=== PATIENT | female | born 1950 | race Hispanic/Latino ===

== ENCOUNTER 2019-08-06 21:35 | Emergency (ER) | payer MEDICARE, OTHER ==
[2019-08-06] MEDS ORDERED: ONDANSETRON 4 MG/2 ML INJ IV ONE (21:59)
--- NOTE | 2019-08-06 22:04 | Emergency Department Report ---
HPI - General Chief Complaint: Fall Time Seen by Provider: 08/06/19 21:51 - HPI HPI: Room 4 The patient is a 69-year-old female present with a chief complaint of fall. The patient was sent from [facility] after reportedly falling when philippin g to get up from her wheelchair. Patient has swelling of the left hand complains of a mild headache with dizziness and nausea. X-ray from longterm facility reveals angulation of distal left third metacarpal suspicious of a nondisplaced fracture. ED Past Medical Hx - Past Medical History Previous Medical History?: Yes Hx CVA: Yes Hx Psychiatric Treatment: Yes (unspecified psychosis, depressive d/o, anxiety, schizophrenia) Hx Dementia: Yes Additional medical history: insominia, fall, muscle weakness, nicotine dependence - Surgical History Past Surgical History?: No Additional Surgical History: unknown - pt is poor historian - Family History Family history: no significant - Social History Smoking Status: Unknown if ever smoked Substance Use Type: None - Medications Home Medications: Home Medications Medication Instructions Recorded Confirmed Last Taken Type Acetaminophen [Acetaminophen TAB] 650 mg PO Q6H PRN #60 tablet 11/03/18 Unknown Rx Folic Acid [Folvite] 1 mg PO QDAY #30 tablet 11/03/18 Unknown Rx LORazepam [Ativan] 1 mg PO Q8H PRN #60 tablet 11/03/18 Unknown Rx Melatonin [Melatonin 5MG TAB] 10 mg PO QHS #30 tablet 11/03/18 Unknown Rx Memantine 5 mg PO BID #30 tablet 11/03/18 Unknown Rx Mirtazapine [Remeron 15mg TAB] 15 mg PO QHS #30 tablet 11/03/18 Unknown Rx Multivitamin Tab [Multiple Vitamin 1 each PO QDAY #30 tablet 11/03/18 Unknown Rx TAB (Theragran)] Nicotine [Habitrol] 14 mg TD QDAY #30 patch 11/03/18 Unknown Rx OLANzapine ZYDIS [ZyPREXA Zydis] 5 mg PO HS #30 tab.rapdis 11/03/18 Unknown Rx levoFLOXacin [Levaquin TAB] 500 mg PO Q24HR #7 tablet 11/03/18 Unknown Rx megestroL [Megestrol] 20 mg PO QID #120 tablet 11/03/18 Unknown Rx traZODone [Desyrel] 50 mg PO QHS #30 tablet 11/03/18 Unknown Rx traZODone [Desyrel] 50 mg PO QHS PRN #30 tablet 11/03/18 Unknown Rx HYDROcodone/APAP 5-325 [Manlius 1 each PO Q6HR PRN #20 tablet 08/06/19 Unknown Rx 5/325] ED Review of Systems ROS: Stated complaint: FALL Other details as noted in HPI Comment: Unobtainable due to pts medical conditions Physical Exam - Physical Exam Physical Exam: GENERAL: The patient is well-developed well-nourished female lying on stretcher not appearing to be in acute distress. [] HEENT: Normocephalic. Atraumatic. Extraocular motions are intact. Patient has moist mucous membranes. NECK: Supple. Trachea midline CHEST/LUNGS: Clear to auscultation. There is no respiratory distress noted. HEART/CARDIOVASCULAR: Regular. There is no tachycardia. There is no gallop rub or murmur. ABDOMEN: Abdomen is soft, nontender. Patient has normal bowel sounds. There is no abdominal distention. SKIN: There is no rash. There is no edema. There is no diaphoresis. NEURO: The patient is awake, alert, and oriented. The patient is cooperative. The patient has no focal neurologic deficits. The patient has normal speech. Cranial nerves II through XII grossly intact MUSCULOSKELETAL: There is swelling and tenderness to the dorsum of the left hand ED Medical Decision Making - Lab Data Laboratory Tests 08/06/19 23:15 ABG pH 7.377 ABG pCO2 39.0 ABG pO2 68.9 L ABG HCO3 22.4 ABG O2 Saturation 95.1 ABG O2 Content 18.0 ABG Base Excess -2.5 L ABG Hemoglobin 13.8 ABG Carboxyhemoglobin 1.5 ABG Methemoglobin 0.6 Oxyhemoglobin 93.2 L FiO2 21 - Radiology Data Radiology results: report reviewed (CT head, CT cervical spine, left hand x- ray), image reviewed (CT head, CT cervical spine, left hand x-ray,) interpreted by me: Left hand [id number] third metacarpal fracture [facility] [address] [place] [address] Cat Scan Report Signed Patient: OSMANY JACOBS MR#: [id number] : 1950 Acct:[id number] Age/Sex: 69 / F ADM Date: 08/06/19 Loc: ED Attending Dr: Ordering Physician: JENNIE SINCLAIR MD Date of Service: 08/06/19 Procedure(s): CT head/brain wo con Accession Number(s): [id number] cc: JENNIE SINCLAIR MD CT HEAD WITHOUT CONTRAST INDICATION: Headache dizziness, after fall. TECHNIQUE: All CT scans at this location are performed using CT dose reduction for ALARA by means of automated exposure control. COMPARISON: CT 09/27/2018 FINDINGS: HEMORRHAGE: None. EXTRA-AXIAL SPACES: Normal in size and morphology for the patient's age. VENTRICULAR SYSTEM: Normal in size and morphology for the patient's age. BRAIN PARENCHYMA: No acute findings. MIDLINE SHIFT OR HERNIATION: None. ORBITS: Normal as visualized. SOFT TISSUES OF HEAD: Normal. CALVARIUM: Normal. VISUALIZED PARANASAL SINUSES AND MASTOID AIR CELLS: Clear. ADDITIONAL FINDINGS: None. IMPRESSION: 1. No acute intracranial abnormality. Signer Name: Og Lomeli MD Signed: 08/06/2019 10:40 PM Workstation Name: [id number] Transcribed By: SAGAR Dictated By: Og Lomeli MD Electronically Authenticated By: Og Lomeli MD Signed Date/Time: 08/06/192239 DD/ 37 TD/TT: [facility] [address] [place] [address] Cat Scan Report Signed Patient: OSMANY JACOBS MR#: [id number] : 1950 Acct:[id number] Age/Sex: 69 / F ADM Date: 08/06/19 Loc: ED Attending Dr: Ordering Physician: JENNIE SINCLAIR MD Date of Service: 08/06/19 Procedure(s): CT cervical spine wo con Accession Number(s): [id number] cc: JENNIE SINCLAIR MD CT cervical spine wo con INDICATION / CLINICAL INFORMATION: Headache dizziness, after fall. TECHNIQUE: Axial CT imaging of the cervical spine was obtained without contrast. Coronal and sagittal reformatted imaging obtained and reviewed. All CT scans at this location are performed using CT dose reduction for ALARA by means of automated exposure control. COMPARISON: None available. FINDINGS: No cervical spine fracture or traumatic malalignment is identified. There is mild spondylitic change throughout the spine and mild degenerative disc disease at C5-C6. No paravertebral soft tissue abnormality. Visualized lung apices are clear. IMPRESSION: 1. No evidence of cervical spine fracture or traumatic malalignment. 2. Mild diffuse spondylytic change with mild degenerative disc disease at C5-C6. Signer Name: Nanette Thomas MD Signed: 08/06/2019 10:50 PM Workstation Name: [id number] Transcribed By: Dictated By: Nanette Thomas MD Electronically Authenticated By: Nanette Thomas MD Signed Date/Time: 08/06/192249 DD/ 44 TD/TT: [facility] [address] [place] [address] XRay Report Signed Patient: OSMANY JACOBS MR#: [id number] : 1950 Acct:[id number] Age/Sex: 69 / F ADM Date: 08/06/19 Loc: ED Attending Dr: Ordering Physician: JENNIE SINCLAIR MD Date of Service: 08/06/19 Procedure(s): XR hand 3+V LT Accession Number(s): [id number] cc: JENNIE SINCLAIR MD Fluoro Time In Minutes: LEFT HAND, 3 VIEWS INDICATION / CLINICAL INFORMATION: Tenderness and swelling after fall. COMPARISON: None available. FINDINGS: There is nondisplaced intra-articular fracture of the distal aspect of the third metacarpal/middle finger).. Normal alignment of the MCP joint. No additional fractures identified. Minimal degenerative changes present throughout the interphalangeal joints. More advanced degenerative changes present in the thumb carpometacarpal joint. IMPRESSION: Nondisplaced intra-articular fracture of the distal third metacarpal. Signer Name: Nanette Thomas MD Signed: 08/06/2019 10:43 PM Workstation Name: [id number] Transcribed By: Dictated By: Nanette Thomas MD Electronically Authenticated By: Nanette Thomas MD Signed Date/Time: 08/06/192242 DD/ 39 TD/TT: - Differential Diagnosis Close head injury, ICH, cervical fracture, hand fracture Critical care attestation.: If time is entered above; I have spent that time in minutes in the direct care of this critically ill patient, excluding procedure time. ED Disposition Clinical Impression: Fracture of metacarpal of left hand, closed, Closed head injury Disposition: TO HOME OR SELFCARE Is pt being admited?: No Does the pt Need Aspirin: No Condition: Stable Instructions: Hand Fracture (ED) Additional Instructions: Return to the emergency department should you develop worsening symptoms, inability to tolerate food or liquids, high fever or any other concerns Prescriptions: HYDROcodone/APAP 5-325 [Manlius 5/325] 1 each PO Q6HR PRN #20 tablet PRN Reason: Pain Referrals: [facility] MD [place] [Primary Care Provider] - 3-5 Days SHANIKA RIVERA MD [Staff Physician] - 3-5 Days (Dr. Rivera is an orthopedic surgeon. Please follow-up with him for further evaluation and manage ment of your hand fracture) Time of Disposition: 23:41
--- NOTE | 2019-08-06 22:44 | Cat Scan Report ---
CT HEAD WITHOUT CONTRAST INDICATION: Headache dizziness, after fall. TECHNIQUE: All CT scans at this location are performed using CT dose reduction for ALARA by means of automated e xposure control. COMPARISON: CT 09/27/2018 FINDINGS: HEMORRHAGE: None. EXTRA-AXIAL SPACES: Normal in size and morphology for the patient's age. VENTRICULAR SYSTEM: Normal in size and morphology for the patient's age. BRAIN PARENCHYMA: No acute findings. MIDLINE SHIFT OR HERNIATION: None. ORBITS: Normal as visualized. SOFT TISSUES OF HEAD: Normal. CALVARIUM: Normal. VISUALIZED PARANASAL SINUSES AND MASTOID AIR CELLS: Clear. ADDITIONAL FINDINGS: None. IMPRESSION: 1. No acute intracranial abnormality. Signer Name: Og Lomeli MD Signed: 08/06/2019 10:40 PM Workstation Name: [id number]
--- NOTE | 2019-08-06 22:48 | XRay Report ---
LEFT HAND, 3 VIEWS INDICATION / CLINICAL INFORMATION: Tenderness and swelling after fall. COMPARISON: None available. FINDINGS: There is nondisplaced intra-articular fracture of the distal aspect of the third metacarpal/middle fi nger).. Normal alignment of the MCP joint. No additional fractures identified. Minimal degenerative changes present throughout the interphalangeal joints. More advanced degenerativ e changes present in the thumb carpometacarpal joint. IMPRESSION: Nondisplaced intra-articular fracture of the distal third metacarpal. Signer Name: Nanette Thomas MD Signed: 08/06/2019 10:43 PM Workstation Name: [id number]
--- NOTE | 2019-08-06 22:54 | Cat Scan Report ---
CT cervical spine wo con INDICATION / CLINICAL INFORMATION: Headache dizziness, after fall. TECHNIQUE: Axial CT imaging of the cervical spine was obtained without contrast. Coronal and sagittal reformatte d imaging obtained and reviewed. All CT scans at this location are performed using CT dose reduction for ALARA by means of automated exposure control. COMPARISON: None available. FINDINGS: No cervical spine fracture or traumatic malalignment is identified. There is mild spondylitic change throughout the spine and mild degenerative disc disease at C5-C6. No paravertebral soft tissue abnormality. Visualized lung apices are clear. IMPRESSION: 1. No evidence of cervical spine fracture or traumatic malalignment. 2. Mild diffuse spondylytic change with mild degenerative disc disease at C5-C6. Signer Name: Nanette Thomas MD Signed: 08/06/2019 10:50 PM Workstation Name: [id number]
[2019-08-06 23:25] LABS: ABG Base Excess -2.5 mmol/L (-2.0-3.0); ABG HCO3 22.4 mmol/L (20.0-26.0); ABG Methemoglobin 0.6 % (0.0-1.5); ABG Oxygen Saturation 95.1 % (95.0-99.0); ABG PH 7.377 pH Units (7.350-7.450); ABG PO2 68.9 mm Hg (80.0-90.0)
[2019-08-07 01:02] VITALS: BP 134/84
== END 2019-08-07 01:21 | disposition home or self-care (01) ==
LOC: ED 21:35
DX: S62.393A Other fracture of third metacarpal bone, left hand, initial encounter for closed fracture (principal); S09.90XA Unspecified injury of head, initial encounter; F20.9 Schizophrenia, unspecified; W18.30XA Fall on same level, unspecified, initial encounter; Y93.89 Activity, other specified; Y92.89 Other specified places as the place of occurrence of the external cause; Y99.8 Other external cause status
CPT/HCPCS: 29125; 70450; 72125; 73130; 82803; 96374; 99285; J2405

== ENCOUNTER 2021-08-16 10:44 | Emergency (ER) | payer MEDICARE ==
--- NOTE | 2021-08-16 12:09 | Emergency Department Report ---
ED General Adult HPI - General Chief complaint: Fall Stated complaint: FALL/INJURY TO HEAD Time Seen by Provider: 08/16/21 11:55 Source: patient, EMS ( EMS documentation not available at time of chart dictation ), RN notes reviewed, old records reviewed Mode of arrival: Stretcher Limitations: Other (Patient is demented and a poor historian) - History of Present Illness Initial comments: The patient was evaluated in the emergency department for symptoms described in the history of present illness. He/she was evaluated in the context of the global COVID-19 pandemic, which necessitated consideration that the patient might be at risk for infection with the virus that causes COVID-19. Institutional protocols and algorithms that pertain to the evaluation of patients at risk for COVID-19 are in a state of rapid change based on information released by regulatory bodies including the CDC and federal and state organizations. These policies and algorithms were followed during the patient's care in the emergency department. Please note that these policies, procedures and recommendations changed on a rapid basis. EMS documentation not available at time of chart dictation Primary CARE doctor: Dr. Agustin Villalobos This is a pleasant and cooperative 71-year-old female with a history of dementia, schizophrenia, insomnia, depression, arthropathy, who was sent to the emergency room by her longterm for evaluation of fall. The fall is not wit nessed. The patient tells me that she fell. She cannot recall the specific instances surrounding the context of her fall. She complains of left-sided forehead pain and periorbital pain, and right-sided knee pain. She denies additional injuries and complaints. The patient is not accompanied by friends or family at this time for collateral information or additional history. Location: head, face, lower extremity (Right knee, right lower extremity) Quality: aching Consistency: intermittent Improves with: rest Worsens with: movement - Related Data Previous Rx's Medication Instructions Recorded Last Taken Type Acetaminophen [Acetaminophen TAB] 650 mg PO Q6H PRN #60 tablet 11/03/18 Unknown Rx Folic Acid [Folvite] 1 mg PO QDAY #30 tablet 11/03/18 Unknown Rx LORazepam [Ativan] 1 mg PO Q8H PRN #60 tablet 11/03/18 Unknown Rx Melatonin [Melatonin 5MG TAB] 10 mg PO QHS #30 tablet 11/03/18 Unknown Rx Memantine 5 mg PO BID #30 tablet 11/03/18 Unknown Rx Mirtazapine [Remeron 15mg TAB] 15 mg PO QHS #30 tablet 11/03/18 Unknown Rx Multivitamin Tab [Multiple Vitamin 1 each PO QDAY #30 tablet 11/03/18 Unknown Rx TAB (Theragran)] Nicotine [Habitrol] 14 mg TD QDAY #30 patch 11/03/18 Unknown Rx OLANzapine ZYDIS [ZyPREXA Zydis] 5 mg PO HS #30 tab.rapdis 11/03/18 Unknown Rx levoFLOXacin [Levaquin TAB] 500 mg PO Q24HR #7 tablet 11/03/18 Unknown Rx megestroL [Megestrol] 20 mg PO QID #120 tablet 11/03/18 Unknown Rx traZODone [Desyrel] 50 mg PO QHS #30 tablet 11/03/18 Unknown Rx traZODone [Desyrel] 50 mg PO QHS PRN #30 tablet 11/03/18 Unknown Rx HYDROcodone/APAP 5-325 [[place] 1 each PO Q6HR PRN #20 tablet 08/06/19 Unknown Rx 5/325] Allergies Allergy/AdvReac Type Severity Reaction Status Date / Time No Known Allergies Allergy Verified 08/16/21 11:38 ED Review of Systems ROS: Stated complaint: FALL/INJURY TO HEAD Other details as noted in HPI Constitutional: denies: fever Eyes: other (Supraorbital pain left) ENT: denies: epistaxis Respiratory: denies: cough Cardiovascular: denies: chest pain, syncope Gastrointestinal: denies: abdominal pain Genitourinary: denies: dysuria Musculoskeletal: joint swelling, arthralgia, myalgia Neurological: headache. denies: weakness ED Past Medical Hx - Past Medical History Hx CVA: Yes Hx Renal Disease: No Hx Arthritis: Yes Hx Seizures: No Hx Psychiatric Treatment: Yes (unspecified psychosis, depressive d/o, anxiety, schizophrenia) Hx Dementia: Yes Additional medical history: insominia, fall, muscle weakness, nicotine de pendence - Surgical History Hx Cholecystectomy: No Hx Appendectomy: No Additional Surgical History: unknown - pt is poor historian - Social History Smoking Status: Unknown if ever smoked Substance Use Type: None - Medications Home Medications: Home Medications Medication Instructions Recorded Confirmed Last Taken Type Acetaminophen [Acetaminophen TAB] 650 mg PO Q6H PRN #60 tablet 11/03/18 Unknown Rx Folic Acid [Folvite] 1 mg PO QDAY #30 tablet 11/03/18 Unknown Rx LORazepam [Ativan] 1 mg PO Q8H PRN #60 tablet 11/03/18 Unknown Rx Melatonin [Melatonin 5MG TAB] 10 mg PO QHS #30 tablet 11/03/18 Unknown Rx Memantine 5 mg PO BID #30 tablet 11/03/18 Unknown Rx Mirtazapine [Remeron 15mg TAB] 15 mg PO QHS #30 tablet 11/03/18 Unknown Rx Multivitamin Tab [Multiple Vitamin 1 each PO QDAY #30 tablet 11/03/18 Unknown Rx TAB (Theragran)] Nicotine [Habitrol] 14 mg TD QDAY #30 patch 11/03/18 Unknown Rx OLANzapine ZYDIS [ZyPREXA Zydis] 5 mg PO HS #30 tab.rapdis 11/03/18 Unknown Rx levoFLOXacin [Levaquin TAB] 500 mg PO Q24HR #7 tablet 11/03/18 Unknown Rx megestroL [Megestrol] 20 mg PO QID #120 tablet 11/03/18 Unknown Rx traZODone [Desyrel] 50 mg PO QHS #30 tablet 11/03/18 Unknown Rx traZODone [Desyrel] 50 mg PO QHS PRN #30 tablet 11/03/18 Unknown Rx HYDROcodone/APAP 5-325 [[place] 1 each PO Q6HR PRN #20 tablet 08/06/19 Unknown Rx 5/325] ED Physical Exam - General Limitations: Other (Dementia and poor historian) General appearance: in no apparent distress - Head Head exam: Present: normocephalic, other (There is left supraorbital ecchymosis, swelling, and hematoma) - Eye Eye exam: Present: normal appearance, EOMI, periorbital swelling, periorbital tenderness, other (Left supraorbital swelling. Left supraorbital tenderness) - ENT ENT exam: Present: normal exam, normal orophraynx, mucous membranes moist, normal external ear exam - Neck Neck exam: Present: normal inspection, full ROM. Absent: tenderness, meningismus - Respiratory Respiratory exam: Present: normal lung sounds bilaterally. Absent: respiratory distress, wheezes, rales, rhonchi, stridor, decreased breath sounds - Cardiovascular Cardiovascular Exam: Present: regular rate, normal rhythm, normal heart sounds. Absent: bradycardia, tachycardia, irregular rhythm, systolic murmur, diastolic murmur, rubs, gallop - GI/Abdominal GI/Abdominal exam: Present: soft. Absent: distended, tenderness, guarding, rebound, rigid, pulsatile mass - Extremities Exam Extremities exam: Present: full ROM, pedal edema (1+ edema in the lower extremities.), other (2+ pulses noted in the bilateral upper and lower extremities. There is no palpable cord. negative Homans sign. Muscular compartments are soft. The pelvis is stable.). Absent: normal inspection (There is a right anterior knee ecchymosis), calf tenderness - Back Exam Back exam: Present: normal inspection, full ROM. Absent: tenderness, CVA tenderness (R), CVA tenderness (L), paraspinal tenderness, vertebral tenderness - Neurological Exam Neurological exam: Present: alert (Patient is awake and alert to name and location), other (There is no facial droop. The tongue is midline. EOMI. Sensation is intact to light touch in 4 extremities. 5/5 strength upper and lower extremities) - Psychiatric Psychiatric exam: Present: flat affect - Skin Skin exam: Present: warm, abrasion, ecchymosis ED Course Vital Signs 08/16/21 11:35 Temperature 98.4 F Pulse Rate 68 Respiratory 18 Rate Blood Pressure 170/90 [Left] O2 Sat by Pulse 99 Oximetry - Reevaluation(s) Reevaluation #1: 08/16/21 13:58 Differential diagnosis, include not limited to: Mechanical fall, closed head injury, intracranial injury, facial bone injury, cervical spine injury, pneumo mala, UTI, electrolyte derangement Assessment and plan: 71-year-old female, who is elderly and demented, with an unwitnessed fall. She is currently afebrile, with reassuring vital signs and in no acute distress. CT scan of the brain, facial bones and cervical spine are negative for significant findings that would require observation or transfer. Currently awaiting urinalysis, x-ray, and laboratory studies. Patient resting comfortably in stretcher at this time, and she is not in any acute distress. 08/16/21 14:12 Patient walking around. She is difficult to redirect. She is demented and di sorganized. This is likely her baseline dementia. As needed haloperidol and Ativan ordered. Still awaiting laboratory studies. 08/16/21 16:02 CT scan 08/16/21 16:08 the patient is reassessed. Her laboratory studies are essentially nonactionable. CT scan brain, facial bones and cervical spine negative for acute traumatic findings that would require emergent intervention. X-rays essentially negative for acute traumatic or emergent findings. UA not consistent with urinary tract infection. Patient pleasant and cooperative, eating a meal at this time, in no acute distress, and interacting smiling and joking with ER staff. This is most likely mechanical fall. The patient is suitable this time to be discharged back to her longterm. We will recommend fall precautions and close observation at her longterm. ED Medical Decision Making - Lab Data Result diagrams: 08/16/21 13:29 08/16/21 13:29 Vital Signs 08/16/21 11:35 Temperature 98.4 F Pulse Rate 68 Respiratory 18 Rate Blood Pressure 170/90 [Left] O2 Sat by Pulse 99 Oximetry - EKG Data -: EKG Interpreted by Wi EKG shows normal: sinus rhythm Rate: normal - EKG Data 08/16/21 13:59 The EKG is interpreted at 12: 18 This is a sinus rhythm, bradycardia, with a rate of 56 bpm. There is a normal axis, normal P wave axis, right bundle branch block, and a first-degree AV block, with a NC interval 2 1 5 ms. There is motion artifact. This is an abnormal EKG. This is not a STEMI. - Radiology Data Radiology results: pending, report reviewed, image reviewed CT HEAD WITHOUT CONTRAST INDICATION / CLINICAL INFORMATION: fall clsoed head injury HEMATOMA TO LEFT FOREHEAD LOC. TECHNIQUE: All CT scans at this location are performed using CT dose reduction for ALARA by means of automated exposure control. COMPARISON: 08/06/2019 FINDINGS: There is left frontal scalp hematoma with periorbital hematoma. No acute intracranial hemorrhage. No midline shift or mass effect. No extra-axial fluid collection is seen. There are scattered areas of low-attenuation in the periventricular and central white matter. Mild atrophy with compensatory increase in ventricular size appears similar to prior exam. Visualized orbits appear normal ADDITIONAL FINDINGS: None. IMPRESSION: 1. Nonspecific white matter change and microangiopathy in the periventricular and central white matter. No acute hemorrhage. 2. Left frontal and periorbital soft tissue hematoma. No acute intracranial hemorrhage. Signer Name: Kunal Cormier MD Signed: 08/16/2021 11:38 AM Workstation Name: [id number] CT facial bones wo con INDICATION / CLINICAL INFORMATION: fall closed head injjry, left periorbital ecchmosi. TECHNIQUE: Axial, coronal and sagittal images All CT scans at this location are performed using CT dose reduction for ALARA by means of automated exposure control. COMPARISON: None available. FINDINGS: Left periorbital soft tissue scalp hematoma. Underlying orbital globes appear intact and normal. Intraocular muscles appear normal. Orbital andres are intact. Zygomatic arches appear intact. Frontal sinuses and ethmoid sinuses and maxillary sinuses are clear. Pterygoid processes appear normal. Nasal bone appears intact. Mandible appears intact. IMPRESSION: 1. Left periorbital and frontal soft tissue scalp hematoma. Oral andres appear intact. No acute fracture is definitely seen. Signer Name: Kunal Cormier MD Signed: 08/16/2021 11:40 AM Workstation Name: [id number] CT cervical spine wo con INDICATION / CLINICAL INFORMATION: fall clsoed head injury. TECHNIQUE: Axial, coronal and sagittal images All CT scans at this location are performed using CT dose reduction for ALARA by means of automated exposure control. COMPARISON: None available. FINDINGS: The cervical spine alignment appears normal. No prevertebral soft tissue swelling. Occipital condyles are intact and normal. Odontoid appears intact. Alignment of C1 and C2 appear normal. Facets are well aligned. Mild increased density seen in the left upper lung with opacity noted. Minimal opacity in the right upper lung. Atherosclerotic calcifications in aorta IMPRESSION: 1. Degenerative change throughout cervical spine without acute fracture. 2. Mild interstitial prominence and densities in the lung apices. Signer Name: Kunal Cormier MD Signed: 08/16/2021 11:46 AM Workstation Name: [id number] CHEST 1 VIEW 08/16/2021 12:39 PM INDICATION / CLINICAL INFORMATION: fall w right knee pain. COMPARISON: None available. FINDINGS: SUPPORT DEVICES: Stable, satisfactory device positioning. HEART / MEDIASTINUM: No significant abnormality. LUNGS / PLEURA: No significant pulmonary or pleural abnormality. No pneumothorax. ADDITIONAL FINDINGS: No significant additional findings. IMPRESSION: 1. No acute findings. Right knee 3 views INDICATION: Fall FINDINGS: Alignment appears normal. No acute fracture or dislocation is seen. No large joint effusion Pelvis one view INDICATION: Fall FINDINGS: Advanced degenerative change in left hip. Prominent osteophyte femoral head neck junction with significant joint space narrowing. Degenerative change in lower lumbar spine. Signer Name: Kunal Cormier MD Signed: 08/16/2021 1:06 PM Workstation Name: [id number] Critical care attestation.: If time is entered above; I have spent that time in minutes in the direct care of this critically ill patient, excluding procedure time. ED Disposition Clinical Impression: Fall, Closed head injury, Traumatic hematoma of forehead, Right knee pain Disposition: 03 [facility] Is pt being admited?: No Does the pt Need Aspirin: No Condition: Good Additional Instructions: Recommend that fall precautions and close observation are initiated for this patient in her longterm. Pain typically gets worse before gets better after mechanical fall. May alternate ice packs and heat packs as needed for physical pain, and [id number] pain medications as needed for physical pain. Please follow-up with your primary care doctor within the next week. Please return to the emergency room right away with new pain, worsened pain, migration of pain, projectile vomiting, change in mental status, confusion, inability tolerate liquid feeds, new, worsened or different symptoms not present on the initial emergency room evaluation Patient was not found to have an emergent traumatic injury or condition at this time which would preclude discharge back to her longterm facility. Referrals: AGUSTIN VILLALOBOS MD [Staff Physician] - 3-5 Days
--- NOTE | 2021-08-16 12:43 | Cat Scan Report ---
CT HEAD WITHOUT CONTRAST INDICATION / CLINICAL INFORMATION: fall clsoed head injury HEMATOMA TO LEFT FOREHEAD LOC. TECHNIQUE: All CT scans at this location are performed using CT dose reduction for ALARA by means of automated e xposure control. COMPARISON: 08/06/2019 FINDINGS: There is left frontal scalp hematoma with periorbital hematoma. No acute intracranial hemorrhage. No midline shift or mass effect. No extra-axial fluid collection is seen. There are scattered areas of l ow-attenuation in the periventricular and central white matter. Mild atrophy with compensatory increa se in ventricular size appears similar to prior exam. Visualized orbits appear normal ADDITIONAL FINDINGS: None. IMPRESSION: 1. Nonspecific white matter change and microangiopathy in the periventricular and central white matte r. No acute hemorrhage. 2. Left frontal and periorbital soft tissue hematoma. No acute intracranial hemorrhage. Signer Name: Kunal Cormier MD Signed: 08/16/2021 12:38 PM Workstation Name: [id number]
--- NOTE | 2021-08-16 12:45 | Cat Scan Report ---
CT facial bones wo con INDICATION / CLINICAL INFORMATION: fall closed head injjry, left periorbital ecchmosi. TECHNIQUE: Axial, coronal and sagittal images All CT scans at this location are performed using CT dose reductio n for ALARA by means of automated exposure control. COMPARISON: None available. FINDINGS: Left periorbital soft tissue scalp hematoma. Underlying orbital globes appear intact and normal. Intr aocular muscles appear normal. Orbital andres are intact. Zygomatic arches appear intact. Frontal sinu ses and ethmoid sinuses and maxillary sinuses are clear. Pterygoid processes appear normal. Nasal bon e appears intact. Mandible appears intact. IMPRESSION: 1. Left periorbital and frontal soft tissue scalp hematoma. Oral andres appear intact. No acute fractu re is definitely seen. Signer Name: Kunal Cormier MD Signed: 08/16/2021 12:40 PM Workstation Name: [id number]
--- NOTE | 2021-08-16 12:50 | Cat Scan Report ---
CT cervical spine wo con INDICATION / CLINICAL INFORMATION: fall clsoed head injury. TECHNIQUE: Axial, coronal and sagittal images All CT scans at this location are performed using CT dose reductio n for ALARA by means of automated exposure control. COMPARISON: None available. FINDINGS: The cervical spine alignment appears normal. No prevertebral soft tissue swelling. Occipital condyles are intact and normal. Odontoid appears intact. Alignment of C1 and C2 appear normal. Facets are wel l aligned. Mild increased density seen in the left upper lung with opacity noted. Minimal opacity in the right upper lung. Atherosclerotic calcifications in aorta IMPRESSION: 1. Degenerative change throughout cervical spine without acute fracture. 2. Mild interstitial prominence and densities in the lung apices. Signer Name: Kunal Cormier MD Signed: 08/16/2021 12:46 PM Workstation Name: [id number]
[2021-08-16] MEDS ORDERED: LORazepam 2 MG/ML VIAL IM PRN (14:11)
[2021-08-16] MEDS ORDERED: HALOPERIDOL LACTATE 5 MG/1 ML INJ IM PRN (14:11)
--- NOTE | 2021-08-16 14:11 | XRay Report ---
CHEST 1 VIEW 08/16/2021 12:39 PM INDICATION / CLINICAL INFORMATION: fall w right knee pain. COMPARISON: None available. FINDINGS: SUPPORT DEVICES: Stable, satisfactory device positioning. HEART / MEDIASTINUM: No significant abnormality. LUNGS / PLEURA: No significant pulmonary or pleural abnormality. No pneumothorax. ADDITIONAL FINDINGS: No significant additional findings. IMPRESSION: 1. No acute findings. Right knee 3 views INDICATION: Fall FINDINGS: Alignment appears normal. No acute fracture or dislocation is seen. No large joint effusion Pelvis one view INDICATION: Fall FINDINGS: Advanced degenerative change in left hip. Prominent osteophyte femoral head neck junction w ith significant joint space narrowing. Degenerative change in lower lumbar spine. Signer Name: Kunal Cormier MD Signed: 08/16/2021 2:06 PM Workstation Name: [id number]
[2021-08-16 14:43] LABS: Hemoglobin 14.8 gm/dl (10.1-14.3); Mean Corpuscular HGB Conc 33 % (30-34); Mean Corpuscular Volume 89 fl (79-97); Platelet Count 140 K/mm3 (140-440); Red Blood Count 5.08 M/mm3 (3.65-5.03); Red Cell Distribution Width 16.2 % (13.2-15.2)
[2021-08-16 14:51] LABS: Bilirubin,Urine NEG (Negative); Blood,Urine NEG (Negative); Color,Urine Yellow (Yellow); Protein,Urine <15 mg/dL mg/dL (Negative); Urobilinogen,Urine < 2.0 mg/dL (<2.0)
[2021-08-16 14:55] LABS: Amorphous Crystals,Urine 1+; Mucus,Urine FEW /HPF
[2021-08-16 14:59] LABS: Ictotest,Urine Negative (Negative)
[2021-08-16 15:35] LABS: Alanine Aminotransferase 16 units/L (7-56); Albumin 4.1 g/dL (3.9-5); Blood Urea Nitrogen 18 mg/dL (7-17); Calcium 10.6 mg/dL (8.4-10.2); Hemolysis Index 53
[2021-08-16 15:55] LABS: BUN/Creatinine Ratio 30
[2021-08-16 20:32] VITALS: BP 112/84
--- NOTE | 2021-08-17 19:47 | Electrocardiograph Report ---
[facility] Test Date: 2021-08-16 Test Time: 12:18:15 Pat Name: OSMANY JACOBS Department: Room: Gender: F Machine Folder: ILIANA : 1950 Requested By: MILES MCGUIRE Order Number: [id number] Reading MD: Alpesh Hutchins Measurements Intervals [place] Rate: 56 P: 62 FL: 215 QRS: 0 QRSD: 102 T: 50 QT: 465 QTc: 449 Interpretive Statements Sinus bradycardia Incomplete right bundle branch block Low voltage QRS No previous ECG available for comparison Electronically Signed On 08-17-2021 19:46:32 EDT by Alpesh Hutchins
== END 2021-08-16 17:00 ==
LOC: ED 10:44
DX: S09.90XA Unspecified injury of head, initial encounter (principal); S00.83XA Contusion of other part of head, initial encounter; M25.561 Pain in right knee; W19.XXXA Unspecified fall, initial encounter; Y93.89 Activity, other specified; Y92.89 Other specified places as the place of occurrence of the external cause; Y99.8 Other external cause status
CPT/HCPCS: 36415; 70450; 70486; 71045; 72125; 72170; 80053; 80320; 81001; 82550; 83735; 85027; 93005; 99285; G0480

== ENCOUNTER 2021-11-02 17:43 | Emergency (ER) | payer MEDICARE ==
--- NOTE | 2021-11-02 23:54 | XRay Report ---
LEFT HUMERUS 2 VIEW(S) INDICATION / CLINICAL INFORMATION: fall COMPARISON: None available. FINDINGS: BONES / JOINT(S): Acute mildly displaced fracture involving the greater tuberosity of the humeral hea d. No other acute fracture or dislocation. SOFT TISSUES: No significant abnormality. ADDITIONAL FINDINGS: None. IMPRESSION: 1. Acute mildly displaced fracture involving the greater tuberosity of the humeral head. Signer Name: Jese Aguirre MD Signed: 11/02/2021 11:49 PM Workstation Name: [email or web address]
--- NOTE | 2021-11-02 23:55 | XRay Report ---
LEFT FOREARM 2 VIEW(S) INDICATION / CLINICAL INFORMATION: fall COMPARISON: None available. FINDINGS: BONES / JOINT(S): No acute fracture or subluxation. No significant arthritis. SOFT TISSUES: Focal soft tissue swelling/edema of the mid forearm. ADDITIONAL FINDINGS: None. IMPRESSION: 1. Focal soft tissue swelling without fracture or other acute osseous process. Signer Name: Jese Aguirre MD Signed: 11/02/2021 11:50 PM Workstation Name: [email or web address]
--- NOTE | 2021-11-02 23:56 | XRay Report ---
CHEST 1 VIEW 11/02/2021 10:40 PM INDICATION / CLINICAL INFORMATION: fall. COMPARISON: 08/16/2021 FINDINGS: SUPPORT DEVICES: Stable, satisfactory device positioning. HEART / MEDIASTINUM: No significant abnormality. LUNGS / PLEURA: Features of emphysema and mild central peribronchial thickening. Right apical opacity is favored to represent vascular confluence. The lungs are otherwise clear without evidence for pneu monia, pulmonary edema or pleural effusion. No pneumothorax. ADDITIONAL FINDINGS: None IMPRESSION: 1. Mild chronic findings, as detailed above, without acute radiographic process. Signer Name: Jese Aguirre MD Signed: 11/02/2021 11:51 PM Workstation Name: [email or web address]
--- NOTE | 2021-11-02 23:57 | XRay Report ---
PELVIS 2 VIEW(S) INDICATION / CLINICAL INFORMATION: fall COMPARISON: None available. FINDINGS: BONES / JOINT(S): No acute fracture or subluxation. Moderate left and mild right hip degenerative ost eoarthritis. SOFT TISSUES: No significant abnormality. ADDITIONAL FINDINGS: Prominent rectal stool concerning for constipation. IMPRESSION: 1. No acute findings. Signer Name: Jese Aguirre MD Signed: 11/02/2021 11:52 PM Workstation Name: [email or web address]
--- NOTE | 2021-11-03 00:25 | Emergency Department Report ---
ED Fall HPI - General Chief Complaint: Fall Stated Complaint: FALL Time Seen by Provider: 11/02/21 22:26 Source: patient, EMS Mode of arrival: Stretcher - History of Present Illness Initial Comments: Patient is a 71-year-old female brought in by EMS after having a fall at home with complaint of pain in her left arm and forearm. She denies any other injuries. - Related Data Previous Rx's Medication Instructions Recorded Last Taken Type Acetaminophen [Acetaminophen TAB] 650 mg PO Q6H PRN #60 tablet 11/03/18 Unknown Rx Folic Acid [Folvite] 1 mg PO QDAY #30 tablet 11/03/18 Unknown Rx LORazepam [Ativan] 1 mg PO Q8H PRN #60 tablet 11/03/18 Unknown Rx Melatonin [Melatonin 5MG TAB] 10 mg PO QHS #30 tablet 11/03/18 Unknown Rx Memantine 5 mg PO BID #30 tablet 11/03/18 Unknown Rx Mirtazapine [Remeron 15mg TAB] 15 mg PO QHS #30 tablet 11/03/18 Unknown Rx Multivitamin Tab [Multiple Vitamin 1 each PO QDAY #30 tablet 11/03/18 Unknown Rx TAB (Theragran)] Nicotine [Habitrol] 14 mg TD QDAY #30 patch 11/03/18 Unknown Rx OLANzapine ZYDIS [ZyPREXA Zydis] 5 mg PO HS #30 tab.rapdis 11/03/18 Unknown Rx levoFLOXacin [Levaquin TAB] 500 mg PO Q24HR #7 tablet 11/03/18 Unknown Rx megestroL [Megestrol] 20 mg PO QID #120 tablet 11/03/18 Unknown Rx traZODone [Desyrel] 50 mg PO QHS #30 tablet 11/03/18 Unknown Rx traZODone [Desyrel] 50 mg PO QHS PRN #30 tablet 11/03/18 Unknown Rx HYDROcodone/APAP 5-325 [Parmelee 1 each PO Q6HR PRN #20 tablet 08/06/19 Unknown Rx 5/325] Allergies Allergy/AdvReac Type Severity Reaction Status Date / Time No Known Allergies Allergy Verified 08/16/21 11:38 ED Review of Systems ROS: Stated complaint: FALL Other details as noted in HPI Constitutional: denies: chills, fever Respiratory: denies: cough, shortness of breath, wheezing Cardiovascular: denies: chest pain, palpitations Gastrointestinal: denies: abdominal pain, nausea, diarrhea Genitourinary: denies: urgency, dysuria, discharge Musculoskeletal: denies: back pain, joint swelling, arthralgia Skin: denies: rash, lesions Neurological: denies: headache, weakness, paresthesias Psychiatric: denies: anxiety, depression ED Past Medical Hx - Past Medical History Hx CVA: Yes Hx Renal Disease: No Hx Arthritis: Yes Hx Seizures: No Hx Psychiatric Treatment: Yes (unspecified psychosis, depressive d/o, anxiety, schizophrenia) Hx Dementia: Yes Additional medical history: insominia, fall, muscle weakness, nicotine dependence - Surgical History Hx Cholecystectomy: No Hx Appendectomy: No Additional Surgical History: unknown - pt is poor historian - Social History Smoking Status: Unknown if ever smoked - Medications Home Medications: Home Medications Medication Instructions Recorded Confirmed Last Taken Type Acetaminophen [Acetaminophen TAB] 650 mg PO Q6H PRN #60 tablet 11/03/18 Unknown Rx Folic Acid [Folvite] 1 mg PO QDAY #30 tablet 11/03/18 Unknown Rx LORazepam [Ativan] 1 mg PO Q8H PRN #60 tablet 11/03/18 Unknown Rx Melatonin [Melatonin 5MG TAB] 10 mg PO QHS #30 tablet 11/03/18 Unknown Rx Memantine 5 mg PO BID #30 tablet 11/03/18 Unknown Rx Mirtazapine [Remeron 15mg TAB] 15 mg PO QHS #30 tablet 11/03/18 Unknown Rx Multivitamin Tab [Multiple Vitamin 1 each PO QDAY #30 tablet 11/03/18 Unknown Rx TAB (Theragran)] Nicotine [Habitrol] 14 mg TD QDAY #30 patch 11/03/18 Unknown Rx OLANzapine ZYDIS [ZyPREXA Zydis] 5 mg PO HS #30 tab.rapdis 11/03/18 Unknown Rx levoFLOXacin [Levaquin TAB] 500 mg PO Q24HR #7 tablet 11/03/18 Unknown Rx megestroL [Megestrol] 20 mg PO QID #120 tablet 11/03/18 Unknown Rx traZODone [Desyrel] 50 mg PO QHS #30 tablet 11/03/18 Unknown Rx traZODone [Desyrel] 50 mg PO QHS PRN #30 tablet 11/03/18 Unknown Rx HYDROcodone/APAP 5-325 [Parmelee 1 each PO Q6HR PRN #20 tablet 08/06/19 Unknown Rx 5/325] ED Physical Exam - General Limitations: Physical Limitation General appearance: alert, in no apparent distress - Head Head exam: Present: atraumatic, normocephalic - Respiratory Respiratory exam: Present: normal lung sounds bilaterally. Absent: respiratory distress - Cardiovascular Cardiovascular Exam: Present: regular rate, normal rhythm, normal heart sounds - GI/Abdominal GI/Abdominal exam: Present: soft. Absent: distended, tenderness - Rectal Rectal exam: Present: deferred - Extremities Exam Extremities exam: Present: tenderness (Tenderness and swelling in left forearm and left proximal humerus) - Neurological Exam Neurological exam: Present: alert, oriented X3 - Psychiatric Psychiatric exam: Present: normal affect, normal mood - Skin Skin exam: Present: warm, dry, intact, normal color ED Course Vital Signs 11/02/21 18:21 Temperature 98.1 F Pulse Rate 90 Respiratory 18 Rate Blood Pressure 116/70 [Left] O2 Sat by Pulse 98 Oximetry ED Medical Decision Making - Medical Decision Making Plain films reveal acute mildly displaced fracture of the greater tuberosity of the humeral head. Chest x-ray and pelvis x-ray are negative. Patient placed in sling for comfort. She is stable for discharge home back to nursing facility. Critical care attestation.: If time is entered above; I have spent that time in minutes in the direct care of this critically ill patient, excluding procedure time. ED Disposition Clinical Impression: Fracture of humeral head, left, closed Disposition: HOME / SELF CARE / HOMELESS Is pt being admited?: No Condition: Stable Instructions: Humerus Fracture Treated With Immobilization, [id number] Additional Instructions: Please follow-up with your primary doctor at your earliest convenience. You may return if your symptoms worsen. Referrals: SHANIKA POLLARD MD [Staff Physician] - 7-10 days Time of Disposition: 00:25
[2021-11-03 01:35] VITALS: BP 133/78
== END 2021-11-03 01:34 | disposition home or self-care (01) ==
LOC: ED 17:43
DX: S42.302A Unspecified fracture of shaft of humerus, left arm, initial encounter for closed fracture (principal); M19.90 Unspecified osteoarthritis, unspecified site; Z86.73 Personal history of transient ischemic attack (TIA), and cerebral infarction without residual deficits; F03.90 Unspecified dementia, unspecified severity, without behavioral disturbance, psychotic disturbance, mood disturbance, and anxiety; F32.A Depression, unspecified; X58.XXXA Exposure to other specified factors, initial encounter; Y93.89 Activity, other specified; Y92.89 Other specified places as the place of occurrence of the external cause; Y99.8 Other external cause status
CPT/HCPCS: 71045; 72170; 99283